=== PATIENT | male | born 1990 | race Caucasian/White ===

== ENCOUNTER 2017-12-17 16:51 | Emergency (ER) | payer OTHER ==
[2017-12-17 17:14] VITALS: BP 127/85; PULSE 79; O2SAT 94
[2017-12-17] MEDS ORDERED: XYLOCAINE 1% HCL 20 ML MDV IJ ONE (17:26)
[2017-12-17] MEDS ORDERED: BACTRIM DS TABLET PO STA (17:27)
[2017-12-17] MEDS ORDERED: XYLOCAINE 1% HCL 20 ML MDV ONE (17:29)
--- NOTE | 2017-12-17 17:30 | ERPHSYRPT ---
- History of Present Illness Time Seen by Provider: 12/17/17 17:16 Source: patient Exam Limitations: no limitations Patient Subjective Stated Complaint: SWELLING, REDNESS, PAIN TO LLQ ABD FOR ONE WEEK Triage Nursing Assessment: AMBULATED TO ROOM PER SELF. SKIN W/D, COLOR NORMAL. RESP EASY. LARGE RED SWOLLEN AREA NOTED TO ABD. SMALL AMT DRAINAGE NOTED. DENIES FEVER. Physician History: 27 y/o male comes to the ER with a large abscess on the left side of the lower abdomen for the past few days. Pt admits to draining a lot of purulent fluid. Pt denies any fever or chills. Pt admits to mild pain. Timing/Duration: day(s) Quality: painful Severity: mild Location: torso Possible Causes: no cause identified Associated Symptoms: denies symptoms Allergies/Adverse Reactions: No Known Drug Allergies Allergy (Unverified 12/17/17 17:14) Hx Tetanus, Diphtheria Vaccination/Date Given: Yes Hx Influenza Vaccination/Date Given: No Hx Pneumococcal Vaccination/Date Given: No - Review of Systems Constitutional: No Fever, No Chills Eyes: No Symptoms Ears, Nose, & Throat: No Symptoms Respiratory: No Cough, No Dyspnea Cardiac: No Chest Pain, No Edema, No Syncope Abdominal/Gastrointestinal: No Abdominal Pain, No Nausea, No Vomiting, No Diarrhea Genitourinary Symptoms: No Dysuria Musculoskeletal: No Back Pain, No Neck Pain Skin: Cellulitis, Induration, Skin Lesions, No Rash Neurological: No Dizziness, No Focal Weakness, No Sensory Changes Psychological: No Symptoms Endocrine: No Symptoms All Other Systems: Reviewed and Negative - Past Medical History Cardiac History: Congenital Heart Disease - Past Surgical History Past Surgical History: Yes Cardiac: Other Other Surgical History: OPEN HEART AT 12 WEEKS OF AGE - Social History Smoking Status: Current every day smoker How long have you smoked: 13 Exposure to second hand smoke: Yes Drug Use: none Patient Lives Alone: No - Nursing Vital Signs Nursing Vital Signs: Initial Vital Signs Temperature 98.8 F 12/17/17 17:06 Pulse Rate 79 12/17/17 17:06 Respiratory Rate 16 12/17/17 17:06 Blood Pressure 127/85 12/17/17 17:06 O2 Sat by Pulse Oximetry 94 L 12/17/17 17:06 Pain Scale Pain Intensity 6 - Physical Exam General Appearance: no apparent distress, alert Eye Exam: PERRL/EOMI, eyes nml inspection Ears, Nose, Throat Exam: normal ENT inspection, pharynx normal, moist mucous membranes Neck Exam: normal inspection, non-tender, supple, full range of motion Respiratory Exam: normal breath sounds, lungs clear, No respiratory distress Cardiovascular Exam: regular rate/rhythm, normal heart sounds Gastrointestinal/Abdomen Exam: soft, mass, No tenderness Back Exam: normal inspection, normal range of motion, No CVA tenderness, No vertebral tenderness Extremity Exam: normal inspection, normal range of motion Neurologic Exam: alert, oriented x 3, cooperative, normal mood/affect, sensation nml, No motor deficits Skin Exam: warm, dry, ecchymosis, other (2X2 abscess on the left lower abdomen) SpO2: 94 Oxygen Delivery: Room Air Procedures - Incision and Drainage Timeout: Performed Site: abdomen Anesthesia: 1% Lidocaine cc's of anesthesia: 5 Blade Size: 11 I & D Procedure: hibiclens prep Results: large amount pus - Course Nursing assessment & vital signs reviewed: Yes Ordered Tests: Medication Summary Discontinued Medications Generic Name Dose Route Start Last Admin Trade Name Ja PRN Reason Stop Dose Admin Ketorolac Tromethamine 60 mg 12/17/17 18:01 12/17/17 18:07 Toradol 30 Mg Injection IM 12/17/17 18:02 60 mg STAT ONE Administration Ketorolac Tromethamine Confirm 12/17/17 18:06 Toradol 30 Mg Injection Administered 12/17/17 18:07 Dose 60 mg .ROUTE .STK-MED ONE Lidocaine HCl 10 ml 12/17/17 17:26 12/17/17 17:56 Xylocaine 1% Hcl 20 Ml Mdv IJ 12/17/17 17:27 10 ml STAT ONE Administration Lidocaine HCl Confirm 12/17/17 17:29 Xylocaine 1% Hcl 20 Ml Mdv Administered 12/17/17 17:30 Dose 5 ml .ROUTE .STK-MED ONE Trimethoprim/Sulfamethoxazole 1 tab 12/17/17 17:27 12/17/17 17:51 Bactrim Ds Tablet PO 12/17/17 17:28 1 tab STAT STA Administration Trimethoprim/Sulfamethoxazole Confirm 12/17/17 17:51 Bactrim Ds Tablet Administered 12/17/17 17:52 Dose 1 tab PO .STK-MED ONE - Progress Progress: improved Progress Note: 12/17/17 18:11 Pt feels better after I&D. See Procedure Note for specifics. Pt will be started on bactrim for 7 days for abscess. - Departure Time of Disposition: 18:11 Departure Disposition: Home Clinical Impression: Abscess Condition: Stable Critical Care Time: No Instructions: Wound Infection Additional Instructions: Return to the ER if you should have worsening pain, drainage, more redness, fever or chills. Finish the antibiotics until completion. Prescriptions: Sulfamethoxazole/Trimethoprim [Bactrim Ds Tablet] 1 each PO BID #13 tablet
[2017-12-17] MEDS ORDERED: BACTRIM DS TABLET PO ONE (17:51)
[2017-12-17] MEDS ORDERED: TORAdol 30 mg Injection IM ONE (18:01)
[2017-12-17] MEDS ORDERED: TORAdol 30 mg Injection ONE (18:06)
== END 2017-12-17 18:19 | disposition home or self-care (01) ==
LOC: ED 16:51
PROC: 0H97XZZ Drainage of Abdomen Skin, External Approach (ICD-10-PCS; principal; 2017-12-17)
DX: L02.211 Cutaneous abscess of abdominal wall (principal)
CPT/HCPCS: 10060; 96372; 99284; J1885; A9270-GY